=== PATIENT | male | born 1975 | race African-American/Black ===

== ENCOUNTER 2021-11-22 23:18 | Inpatient (IN) ==
[2021-11-23] MEDS ORDERED: ONDANSETRON 4 MG/2 ML VIAL IV STA (00:08)
[2021-11-23 00:38] LABS: Alanine Aminotransferase 11 U/L (16-61); Albumin 2.5 G/DL (3.4-5.0); Alkaline Phosphatase 81 U/L (45-117); Amylase 181 U/L (25-115); Aspartate Amino Transferase 10 U/L (0-37); Blood Urea Nitrogen 58 MG/DL (7-18); Calcium 8.5 MG/DL (8.5-10.1); Carbon Dioxide 28 MMOL/L (21-32); Chloride 96 MMOL/L (98-107); Estimated Glom Filtration Rate 6 ML/MIN; Glucose 246 MG/DL (74-106); Osmolality,Calculated 296.8 MOS/KG (273-304); Potassium 3.4 MMOL/L (3.5-5.1); Sodium 137 MMOL/L (136-145); Total Protein 6.6 G/DL (6.4-8.2)
[2021-11-23 00:59] LABS: Basophils # 0.1 10*3/uL (0.0-0.2); Basophils % 0.6 % (0.0-0.8); Eosinophils # 0.6 10*3/uL (0.0-0.87); Eosinophils % 5.4 % (0.00-10.9); Hematocrit 30.9 VOL% (42.0-52.0); Hemoglobin 9.6 GM/DL (14.0-18.0); Immature Granulocytes % 1.2 %; Immature Granulocytes Absolute 0.12 #; Lymphocytes # 0.9 10*3/uL (1.4-4.0); Lymphocytes % 8.5 % (21.2-54.2); Mean Corpuscular HGB Conc 31.1 GM/DL (32-36); Mean Corpuscular Volume 92.2 FL (87-102); Mean Platelet Volume 9.6 FL (9.6-12.0); Monocytes # 0.9 10*3/uL (0.11-0.8); Monocytes % 8.6 % (1.7-12.7); NRBC # 0.02 10*3/uL; Neutrophils % 75.7 % (38.7-73.9); Platelet Count 214 T/CUMM (130-400); Red Blood Count 3.35 MC/CUMM (3.8-5.5); Red Cell Distribution Width 14.9 % (9.3-17.3); White Blood Count 10.3 T/CUMM (4-12)
[2021-11-23 01:39] LABS: PT Patient Result 11.6 SECS (10.5-12.0)
[2021-11-23] MEDS ORDERED: metroNIDAZOLE 500 MG TABLET PO STA (02:08)
[2021-11-23] MEDS ORDERED: ACETAMINOPHEN 325 MG TABLET PO PRN (02:19)
[2021-11-23] MEDS ORDERED: GLUCAGON 1 MG VIAL IM PRN (02:19)
[2021-11-23] MEDS ORDERED: DEXTROSE 10% 250 ML BAG IV PRN (02:19)
[2021-11-23] MEDS: VANCOMYCIN 125 MG CAPSULE PO SCH ×4 (04:58→23:08)
[2021-11-23] MEDS: INSULIN REGULAR 100 UNIT/ML SUBCUT SCH ×4 (08:51→21:35)
[2021-11-23] MEDS ORDERED: HEPARIN 10,000 UNIT/10 ML VIAL IV ONE (16:15)
[2021-11-24 01:28] LABS: RBC,Urine 26546 /HPF (0-4)
[2021-11-24 01:30] LABS: Urine Color Red (Yellow)
[2021-11-24 01:31] LABS: Bilirubin,Urine Large mg/dL (Negative); Glucose,Urine (UA) 100 mg/dL (Negative); Ketones,Urine TR mg/dL (Negative); Nitrite,Urine Positive (Negative); Protein,Urine >=300 mg/dL (Negative); Urine Appearance CLOUDY (Clear); Urine pH 8.5 (4.5-8.0)
[2021-11-24 01:32] LABS: Blood, Urine Large mg/dL (Negative)
[2021-11-24 04:39] LABS: Basophils % 0.5 % (0.0-0.8); Eosinophils # 0.6 10*3/uL (0.0-0.87); Eosinophils % 6.7 % (0.00-10.9); Hematocrit 26.8 VOL% (42.0-52.0); Hemoglobin 8.3 GM/DL (14.0-18.0); Immature Granulocytes % 1.4 %; Immature Granulocytes Absolute 0.12 #; Lymphocytes # 0.8 10*3/uL (1.4-4.0); Lymphocytes % 9.2 % (21.2-54.2); Mean Corpuscular Volume 92.7 FL (87-102); Mean Platelet Volume 9.9 FL (9.6-12.0); Monocytes # 1.2 10*3/uL (0.11-0.8); Monocytes % 13.9 % (1.7-12.7); NRBC # 0.02 10*3/uL; Neutrophils % 68.3 % (38.7-73.9); Platelet Count 147 T/CUMM (130-400); Red Blood Count 2.89 MC/CUMM (3.8-5.5); Red Cell Distribution Width 15.2 % (9.3-17.3); White Blood Count 8.5 T/CUMM (4-12)
[2021-11-24 05:06] LABS: Alanine Aminotransferase < 9 U/L (16-61); Albumin 2.1 G/DL (3.4-5.0); Alkaline Phosphatase 65 U/L (45-117); Aspartate Amino Transferase 10 U/L (0-37); Blood Urea Nitrogen 31 MG/DL (7-18); Calcium 8.3 MG/DL (8.5-10.1); Carbon Dioxide 28 MMOL/L (21-32); Chloride 102 MMOL/L (98-107); Estimated Glom Filtration Rate 9 ML/MIN; Glucose 253 MG/DL (74-106); Osmolality,Calculated 288.8 MOS/KG (273-304); Phosphorous 4.2 MG/DL (2.5-4.9); Potassium 3.8 MMOL/L (3.5-5.1); Sodium 137 MMOL/L (136-145)
[2021-11-24] MEDS: VANCOMYCIN 125 MG CAPSULE PO SCH ×4 (05:23→22:45)
[2021-11-24] MEDS: INSULIN REGULAR 100 UNIT/ML SUBCUT SCH ×4 (08:55→20:41)
[2021-11-24] MEDS ORDERED: HEPARIN 10,000 UNIT/10 ML VIAL IV PRN (09:54)
[2021-11-24] MEDS: hydrALAZINE 20 MG/1 ML VIAL IV PRN (10:15)
[2021-11-24] MEDS: ONDANSETRON 4 MG/2 ML VIAL IV PRN (23:38)
[2021-11-25] MEDS: hydrALAZINE 20 MG/1 ML VIAL IV PRN (01:06)
[2021-11-25 04:52] LABS: Basophils % 0.4 % (0.0-0.8); Eosinophils # 0.3 10*3/uL (0.0-0.87); Eosinophils % 3.6 % (0.00-10.9); Hematocrit 29.7 VOL% (42.0-52.0); Hemoglobin 8.9 GM/DL (14.0-18.0); Immature Granulocytes % 0.7 %; Immature Granulocytes Absolute 0.07 #; Lymphocytes # 0.7 10*3/uL (1.4-4.0); Lymphocytes % 7.3 % (21.2-54.2); Mean Corpuscular Volume 93.7 FL (87-102); Mean Platelet Volume 10.3 FL (9.6-12.0); Monocytes # 1.1 10*3/uL (0.11-0.8); Monocytes % 11.5 % (1.7-12.7); NRBC # 0.02 10*3/uL; Neutrophils % 76.5 % (38.7-73.9); Platelet Count 184 T/CUMM (130-400); Red Blood Count 3.17 MC/CUMM (3.8-5.5); Red Cell Distribution Width 15.5 % (9.3-17.3); White Blood Count 9.5 T/CUMM (4-12)
[2021-11-25] MEDS: VANCOMYCIN 125 MG CAPSULE PO SCH ×4 (05:05→23:10)
[2021-11-25 05:15] LABS: Calcium 8.6 MG/DL (8.5-10.1); Osmolality,Calculated 284.7 MOS/KG (273-304); Potassium 3.6 MMOL/L (3.5-5.1)
[2021-11-25] MEDS ORDERED: predniSONE 20 MG TABLET PO SCH (09:00)
[2021-11-25] MEDS ORDERED: INSULIN GLARGINE 100 UNIT/ML SUBCUT SCH ×2 (09:00→21:00)
[2021-11-25] MEDS: ATORVASTATIN 20 MG TABLET PO SCH (09:54)
[2021-11-25] MEDS: TACROLIMUS 0.5 MG CAPSULE PO SCH ×2 (09:54→21:51)
[2021-11-25] MEDS: INSULIN REGULAR 100 UNIT/ML SUBCUT SCH ×4 (09:54→21:52)
[2021-11-25] MEDS: CHOLESTYRAMINE 4 GM PACK PO SCH ×2 (10:01→21:51)
[2021-11-25] MEDS: METOCLOPRAMIDE 10 MG/2 ML VIAL IV PRN (10:01)
[2021-11-25] MEDS: cefTRIAXone 2,000 MG in SODIUM CHLORIDE 0.9% 100 ML IV SCH (13:01)
[2021-11-25 13:45] LABS: Hemoglobin 9.4 GM/DL (14.0-18.0)
[2021-11-25] MEDS ORDERED: FLUCONAZOLE 100 MG TABLET PO SCH (14:30)
[2021-11-25] MEDS: NYSTATIN 500,000 UNIT/5 ML UDCUP PO SCH ×3 (16:18→21:51)
[2021-11-25] MEDS: methylPREDNISolone SOD SUC 125 MG/2 ML VIAL IV SCH (17:50)
[2021-11-25] MEDS: FERROUS SULFATE 325 MG TABLET PO SCH (21:50)
[2021-11-25 22:20] LABS: Hematocrit 33.2 VOL% (42.0-52.0); Hemoglobin 10.5 GM/DL (14.0-18.0)
[2021-11-26] MEDS: ONDANSETRON 4 MG/2 ML VIAL IV PRN (00:27)
[2021-11-26] MEDS: methylPREDNISolone SOD SUC 125 MG/2 ML VIAL IV SCH ×3 (00:30→16:21)
[2021-11-26] MEDS: METOCLOPRAMIDE 10 MG/2 ML VIAL IV PRN ×3 (01:43→21:25)
[2021-11-26] MEDS: INSULIN REGULAR 100 UNIT/ML SUBCUT SCH ×5 (01:53→21:25)
[2021-11-26] MEDS: VANCOMYCIN 125 MG CAPSULE PO SCH ×3 (04:19→16:21)
[2021-11-26] MEDS ORDERED: PROMETHAZINE INJ 12.5 MG in SODIUM CHLORIDE 0.9% 50 ML IV ONE (04:37)
[2021-11-26] MEDS: hydrALAZINE 20 MG/1 ML VIAL IV PRN (04:44)
[2021-11-26 05:59] LABS: Basophils % 0.1 % (0.0-0.8); Hematocrit 29.7 VOL% (42.0-52.0); Hemoglobin 9.4 GM/DL (14.0-18.0); Immature Granulocytes % 0.6 %; Immature Granulocytes Absolute 0.09 #; Lymphocytes # 0.3 10*3/uL (1.4-4.0); Lymphocytes % 2.3 % (21.2-54.2); Mean Corpuscular HGB Conc 31.6 GM/DL (32-36); Mean Corpuscular Volume 91.7 FL (87-102); Mean Platelet Volume 10.4 FL (9.6-12.0); Monocytes # 0.1 10*3/uL (0.11-0.8); Platelet Count 224 T/CUMM (130-400); Red Blood Count 3.24 MC/CUMM (3.8-5.5); Red Cell Distribution Width 15.4 % (9.3-17.3)
[2021-11-26 06:18] LABS: Calcium 9.7 MG/DL (8.5-10.1); Potassium 3.6 MMOL/L (3.5-5.1)
[2021-11-26 06:21] LABS: Hypochromia Slight; Lymphocytes 2 % (20-55); Microcytosis Slight; Platelet Estimate Adequate; Total Cells Counted 100
[2021-11-26] MEDS: ATORVASTATIN 20 MG TABLET PO SCH (09:23)
[2021-11-26] MEDS: NYSTATIN 500,000 UNIT/5 ML UDCUP PO SCH (09:23)
[2021-11-26] MEDS: NICOTINE 21 MG/24 HR PATCH TRANSDERM SCH (09:24)
[2021-11-26] MEDS: CHOLESTYRAMINE 4 GM PACK PO SCH ×2 (09:24→21:26)
[2021-11-26] MEDS: TACROLIMUS 0.5 MG CAPSULE PO SCH ×2 (09:28→21:24)
[2021-11-26] MEDS: FERROUS SULFATE 325 MG TABLET PO SCH ×2 (09:28→21:24)
[2021-11-26] MEDS: cefTRIAXone 2,000 MG in SODIUM CHLORIDE 0.9% 100 ML IV SCH (10:29)
[2021-11-26] MEDS ORDERED: ALUM/MAG/SIMETH/LIDO VISC 1:1 30 ML BOTTLE PO ONE (11:30)
[2021-11-26 14:07] LABS: Hematocrit 28.7 VOL% (42.0-52.0)
[2021-11-26] MEDS ORDERED: INSULIN GLARGINE 100 UNIT/ML SUBCUT SCH (21:00)
[2021-11-26] MEDS: PANTOPRAZOLE 40 MG TABLET PO SCH (21:24)
[2021-11-27] MEDS: VANCOMYCIN 125 MG CAPSULE PO SCH ×5 (00:25→22:28)
[2021-11-27] MEDS: methylPREDNISolone SOD SUC 125 MG/2 ML VIAL IV SCH ×3 (00:49→17:08)
[2021-11-27] MEDS: MORPHINE 2 MG/1 ML SYRINGE IV PRN ×3 (00:51→22:29)
[2021-11-27] MEDS: ONDANSETRON 4 MG/2 ML VIAL IV PRN ×2 (00:55→12:35)
[2021-11-27 05:37] LABS: Basophils % 0.1 % (0.0-0.8); Hematocrit 28.5 VOL% (42.0-52.0); Hemoglobin 8.7 GM/DL (14.0-18.0); Immature Granulocytes % 0.9 %; Immature Granulocytes Absolute 0.14 #; Lymphocytes # 0.3 10*3/uL (1.4-4.0); Mean Corpuscular HGB Conc 30.5 GM/DL (32-36); Mean Corpuscular Volume 94.1 FL (87-102); Mean Platelet Volume 9.9 FL (9.6-12.0); Monocytes # 0.3 10*3/uL (0.11-0.8); Monocytes % 1.7 % (1.7-12.7); Neutrophils % 95.3 % (38.7-73.9); Platelet Count 240 T/CUMM (130-400); Red Blood Count 3.03 MC/CUMM (3.8-5.5); Red Cell Distribution Width 15.9 % (9.3-17.3); White Blood Count 16.3 T/CUMM (4-12)
[2021-11-27] MEDS: METOCLOPRAMIDE 10 MG/2 ML VIAL IV PRN (05:41)
[2021-11-27 05:57] LABS: Calcium 10.2 MG/DL (8.5-10.1); Potassium 4.2 MMOL/L (3.5-5.1)
[2021-11-27 06:19] LABS: Band Neutrophils 1 % (0-10); Hypochromia Slight; Platelet Estimate Normal
[2021-11-27 06:20] LABS: Total Cells Counted 100
[2021-11-27] MEDS: FERROUS SULFATE 325 MG TABLET PO SCH ×2 (08:37→22:27)
[2021-11-27] MEDS: ATORVASTATIN 20 MG TABLET PO SCH (08:37)
[2021-11-27] MEDS: PANTOPRAZOLE 40 MG TABLET PO SCH ×2 (08:37→22:27)
[2021-11-27] MEDS: CHOLESTYRAMINE 4 GM PACK PO SCH ×2 (08:38→22:27)
[2021-11-27] MEDS: NICOTINE 21 MG/24 HR PATCH TRANSDERM SCH (08:46)
[2021-11-27] MEDS: TACROLIMUS 0.5 MG CAPSULE PO SCH ×2 (08:53→22:39)
[2021-11-27] MEDS: INSULIN REGULAR 100 UNIT/ML SUBCUT SCH ×4 (08:54→22:28)
[2021-11-27] MEDS: cefTRIAXone 2,000 MG in SODIUM CHLORIDE 0.9% 100 ML IV SCH (12:34)
[2021-11-27] MEDS: NYSTATIN 500,000 UNIT/5 ML UDCUP SWISH/SWAL SCH ×3 (14:33→22:27)
[2021-11-27] MEDS ORDERED: INSULIN GLARGINE 100 UNIT/ML SUBCUT SCH (21:00)
[2021-11-28] MEDS: methylPREDNISolone SOD SUC 125 MG/2 ML VIAL IV SCH ×2 (00:18→09:00)
[2021-11-28 05:01] LABS: Basophils % 0.1 % (0.0-0.8); Hematocrit 28.6 VOL% (42.0-52.0); Hemoglobin 8.9 GM/DL (14.0-18.0); Immature Granulocytes % 1.4 %; Immature Granulocytes Absolute 0.22 #; Lymphocytes # 0.4 10*3/uL (1.4-4.0); Lymphocytes % 2.5 % (21.2-54.2); Mean Corpuscular HGB Conc 31.1 GM/DL (32-36); Mean Corpuscular Volume 92.6 FL (87-102); Mean Platelet Volume 10.2 FL (9.6-12.0); Monocytes # 0.6 10*3/uL (0.11-0.8); Monocytes % 4.1 % (1.7-12.7); NRBC # 0.03 10*3/uL; Neutrophils % 91.9 % (38.7-73.9); Platelet Count 213 T/CUMM (130-400); Red Blood Count 3.09 MC/CUMM (3.8-5.5); Red Cell Distribution Width 15.4 % (9.3-17.3); White Blood Count 15.7 T/CUMM (4-12)
[2021-11-28] MEDS: VANCOMYCIN 125 MG CAPSULE PO SCH ×4 (05:11→22:40)
[2021-11-28 05:21] LABS: Osmolality,Calculated 286.2 MOS/KG (273-304); Potassium 4.3 MMOL/L (3.5-5.1)
[2021-11-28] MEDS: METOCLOPRAMIDE 10 MG/2 ML VIAL IV PRN (05:24)
[2021-11-28 05:29] LABS: Band Neutrophils 1 % (0-10); Hypochromia 1+; Lymphocytes 5 % (20-55); Total Cells Counted 100
[2021-11-28 05:30] LABS: Microcytosis 1+; Ovalocytes Slight; Polychromasia Slight
[2021-11-28 05:31] LABS: Platelet Estimate Normal
[2021-11-28] MEDS: ATORVASTATIN 20 MG TABLET PO SCH (08:52)
[2021-11-28] MEDS: TACROLIMUS 0.5 MG CAPSULE PO SCH ×2 (08:53→20:18)
[2021-11-28] MEDS: PANTOPRAZOLE 40 MG TABLET PO SCH ×2 (08:53→20:19)
[2021-11-28] MEDS: NYSTATIN 500,000 UNIT/5 ML UDCUP SWISH/SWAL SCH ×4 (08:53→20:17)
[2021-11-28] MEDS: CHOLESTYRAMINE 4 GM PACK PO SCH ×2 (08:54→20:33)
[2021-11-28] MEDS: NICOTINE 21 MG/24 HR PATCH TRANSDERM SCH (08:54)
[2021-11-28] MEDS: MORPHINE 2 MG/1 ML SYRINGE IV PRN ×2 (08:55→20:37)
[2021-11-28] MEDS: INSULIN REGULAR 100 UNIT/ML SUBCUT SCH ×4 (08:55→20:23)
[2021-11-28] MEDS: FERROUS SULFATE 325 MG TABLET PO SCH ×2 (09:03→20:18)
[2021-11-28] MEDS: LOPERAMIDE 2 MG CAPSULE PO PRN (11:18)
[2021-11-28] MEDS: cefTRIAXone 2,000 MG in SODIUM CHLORIDE 0.9% 100 ML IV SCH (11:22)
[2021-11-28] MEDS ORDERED: ALUM/MAG/SIMETH/LIDO VISC 1:1 30 ML BOTTLE PO ONE (15:06)
[2021-11-28] MEDS: predniSONE 20 MG TABLET PO SCH (20:19)
[2021-11-28] MEDS: INSULIN GLARGINE 100 UNIT/ML SUBCUT SCH (20:25)
[2021-11-29] MEDS: LOPERAMIDE 2 MG CAPSULE PO PRN ×2 (00:32→09:02)
[2021-11-29 04:07] LABS: Basophils % 0.2 % (0.0-0.8); Hematocrit 27.5 VOL% (42.0-52.0); Hemoglobin 8.8 GM/DL (14.0-18.0); Immature Granulocytes % 1.9 %; Immature Granulocytes Absolute 0.23 #; Lymphocytes # 0.6 10*3/uL (1.4-4.0); Lymphocytes % 4.9 % (21.2-54.2); Mean Corpuscular Volume 90.8 FL (87-102); Mean Platelet Volume 10.5 FL (9.6-12.0); Monocytes # 0.8 10*3/uL (0.11-0.8); Monocytes % 6.5 % (1.7-12.7); NRBC # 0.05 10*3/uL; Neutrophils % 86.5 % (38.7-73.9); Platelet Count 223 T/CUMM (130-400); Red Blood Count 3.03 MC/CUMM (3.8-5.5); Red Cell Distribution Width 15.4 % (9.3-17.3); White Blood Count 11.9 T/CUMM (4-12)
[2021-11-29 04:29] LABS: Calcium 9.2 MG/DL (8.5-10.1); Osmolality,Calculated 296.1 MOS/KG (273-304); Potassium 4.1 MMOL/L (3.5-5.1)
[2021-11-29 04:31] LABS: Hypochromia 1+; Lymphocytes 2 % (20-55); Microcytosis 1+; Nucleated Red Blood Cells 1 (0-5); Platelet Estimate Adequate; Total Cells Counted 100
[2021-11-29] MEDS: VANCOMYCIN 125 MG CAPSULE PO SCH ×4 (04:33→22:55)
[2021-11-29] MEDS: MORPHINE 2 MG/1 ML SYRINGE IV PRN ×3 (04:41→22:58)
[2021-11-29] MEDS: INSULIN REGULAR 100 UNIT/ML SUBCUT SCH ×4 (08:01→21:39)
[2021-11-29] MEDS: PANTOPRAZOLE 40 MG TABLET PO SCH ×2 (08:58→20:55)
[2021-11-29] MEDS: ATORVASTATIN 20 MG TABLET PO SCH (08:58)
[2021-11-29] MEDS: CHOLESTYRAMINE 4 GM PACK PO SCH ×2 (08:58→20:55)
[2021-11-29] MEDS: TACROLIMUS 0.5 MG CAPSULE PO SCH ×2 (08:59→20:55)
[2021-11-29] MEDS: predniSONE 20 MG TABLET PO SCH ×2 (08:59→21:00)
[2021-11-29] MEDS: NYSTATIN 500,000 UNIT/5 ML UDCUP SWISH/SWAL SCH ×4 (08:59→20:54)
[2021-11-29] MEDS: FERROUS SULFATE 325 MG TABLET PO SCH ×2 (08:59→21:00)
[2021-11-29] MEDS: NICOTINE 21 MG/24 HR PATCH TRANSDERM SCH (09:13)
[2021-11-29] MEDS ORDERED: ALUMINUM/MAGNES/SIMETH MAX STR 30 ML UDCUP PO PRN (10:17)
[2021-11-29] MEDS: cefTRIAXone 2,000 MG in SODIUM CHLORIDE 0.9% 100 ML IV SCH (14:42)
[2021-11-29] MEDS: INSULIN GLARGINE 100 UNIT/ML SUBCUT SCH (20:56)
[2021-11-30] MEDS: VANCOMYCIN 125 MG CAPSULE PO SCH ×4 (04:35→22:47)
[2021-11-30 05:26] LABS: Basophils % 0.3 % (0.0-0.8); Eosinophils % 0.1 % (0.00-10.9); Hematocrit 29.4 VOL% (42.0-52.0); Immature Granulocytes % 4.2 %; Immature Granulocytes Absolute 0.55 #; Lymphocytes # 0.8 10*3/uL (1.4-4.0); Mean Corpuscular HGB Conc 30.6 GM/DL (32-36); Mean Corpuscular Volume 93.6 FL (87-102); Mean Platelet Volume 10.1 FL (9.6-12.0); Monocytes # 0.6 10*3/uL (0.11-0.8); Monocytes % 4.8 % (1.7-12.7); NRBC # 0.06 10*3/uL; Neutrophils % 84.6 % (38.7-73.9); Platelet Count 232 T/CUMM (130-400); Red Blood Count 3.14 MC/CUMM (3.8-5.5); Red Cell Distribution Width 15.8 % (9.3-17.3); White Blood Count 13.1 T/CUMM (4-12)
[2021-11-30 05:46] LABS: Calcium 8.8 MG/DL (8.5-10.1); Osmolality,Calculated 283.8 MOS/KG (273-304); Potassium 4.1 MMOL/L (3.5-5.1)
[2021-11-30 06:03] LABS: Hypochromia 1+; Lymphocytes 5 % (20-55); Microcytosis 1+; Platelet Estimate Adequate; Total Cells Counted 100
[2021-11-30] MEDS: INSULIN REGULAR 100 UNIT/ML SUBCUT SCH ×4 (08:31→21:13)
[2021-11-30] MEDS: SODIUM CHLORIDE 0.9% 1,000 ML IV SCH (10:49)
[2021-11-30] MEDS ORDERED: LIDOCAINE 2% 5 ML VIAL ONE (13:25)
[2021-11-30] MEDS ORDERED: propofoL 200 MG/20 ML VIAL IV ONE (13:25)
[2021-11-30] MEDS: NYSTATIN 500,000 UNIT/5 ML UDCUP SWISH/SWAL SCH ×4 (15:14→21:11)
[2021-11-30] MEDS: predniSONE 20 MG TABLET PO SCH ×2 (15:15→21:12)
[2021-11-30] MEDS: FERROUS SULFATE 325 MG TABLET PO SCH ×2 (15:15→21:12)
[2021-11-30] MEDS: PANTOPRAZOLE 40 MG TABLET PO SCH ×2 (15:15→21:12)
[2021-11-30] MEDS: ATORVASTATIN 20 MG TABLET PO SCH (15:15)
[2021-11-30] MEDS: TACROLIMUS 0.5 MG CAPSULE PO SCH ×2 (15:15→21:12)
[2021-11-30] MEDS: CHOLESTYRAMINE 4 GM PACK PO SCH ×2 (15:16→21:11)
[2021-11-30] MEDS: cefTRIAXone 2,000 MG in SODIUM CHLORIDE 0.9% 100 ML IV SCH (15:19)
[2021-11-30] MEDS: NICOTINE 21 MG/24 HR PATCH TRANSDERM SCH (15:51)
[2021-11-30] MEDS: MORPHINE 2 MG/1 ML SYRINGE IV PRN (16:29)
[2021-11-30] MEDS: hydrALAZINE 20 MG/1 ML VIAL IV PRN (16:50)
[2021-11-30] MEDS: INSULIN GLARGINE 100 UNIT/ML SUBCUT SCH (21:45)
[2021-12-01] MEDS: VANCOMYCIN 125 MG CAPSULE PO SCH ×4 (04:30→22:58)
[2021-12-01 04:51] LABS: Basophils % 0.3 % (0.0-0.8); Eosinophils % 0.3 % (0.00-10.9); Hematocrit 29.2 VOL% (42.0-52.0); Hemoglobin 8.9 GM/DL (14.0-18.0); Immature Granulocytes % 2.4 %; Immature Granulocytes Absolute 0.28 #; Lymphocytes # 0.4 10*3/uL (1.4-4.0); Lymphocytes % 3.6 % (21.2-54.2); Mean Corpuscular HGB Conc 30.5 GM/DL (32-36); Mean Corpuscular Volume 94.2 FL (87-102); Mean Platelet Volume 10.7 FL (9.6-12.0); Monocytes # 0.6 10*3/uL (0.11-0.8); Monocytes % 5.2 % (1.7-12.7); NRBC # 0.02 10*3/uL; Neutrophils % 88.2 % (38.7-73.9); Platelet Count 177 T/CUMM (130-400); Red Cell Distribution Width 16.3 % (9.3-17.3); White Blood Count 11.8 T/CUMM (4-12)
[2021-12-01 05:08] LABS: Calcium 8.8 MG/DL (8.5-10.1); Osmolality,Calculated 297.5 MOS/KG (273-304); Potassium 4.7 MMOL/L (3.5-5.1)
[2021-12-01 05:21] LABS: Band Neutrophils 1 % (0-10); Hypochromia 1+; Lymphocytes 3 % (20-55); Microcytosis 1+; Platelet Estimate Adequate; Total Cells Counted 100
[2021-12-01] MEDS: CHOLESTYRAMINE 4 GM PACK PO SCH ×2 (08:36→21:51)
[2021-12-01] MEDS: NYSTATIN 500,000 UNIT/5 ML UDCUP SWISH/SWAL SCH ×4 (08:36→21:47)
[2021-12-01] MEDS: FERROUS SULFATE 325 MG TABLET PO SCH ×2 (08:37→21:47)
[2021-12-01] MEDS: TACROLIMUS 0.5 MG CAPSULE PO SCH ×2 (08:37→21:46)
[2021-12-01] MEDS: PANTOPRAZOLE 40 MG TABLET PO SCH ×2 (08:38→21:47)
[2021-12-01] MEDS: predniSONE 20 MG TABLET PO SCH ×2 (08:38→21:46)
[2021-12-01] MEDS: ATORVASTATIN 20 MG TABLET PO SCH (08:38)
[2021-12-01] MEDS: INSULIN REGULAR 100 UNIT/ML SUBCUT SCH ×5 (08:39→21:47)
[2021-12-01] MEDS: ONDANSETRON 4 MG/2 ML VIAL IV PRN (08:45)
[2021-12-01] MEDS: SODIUM CHLORIDE 0.9% 1,000 ML IV SCH (08:49)
[2021-12-01] MEDS: NICOTINE 21 MG/24 HR PATCH TRANSDERM SCH (08:49)
[2021-12-01] MEDS: cefTRIAXone 2,000 MG in SODIUM CHLORIDE 0.9% 100 ML IV SCH (12:34)
[2021-12-01] MEDS: metroNIDAZOLE INJ 500 MG/100 ML PREMIX IV SCH ×2 (13:39→21:48)
[2021-12-01] MEDS: LOPERAMIDE 2 MG CAPSULE PO PRN (13:48)
[2021-12-01] MEDS: MORPHINE 2 MG/1 ML SYRINGE IV PRN (13:51)
[2021-12-01] MEDS: INSULIN GLARGINE 100 UNIT/ML SUBCUT SCH (21:48)
[2021-12-02] MEDS: ONDANSETRON 4 MG/2 ML VIAL IV PRN (04:18)
[2021-12-02 05:01] LABS: Basophils % 0.2 % (0.0-0.8); Eosinophils % 0.2 % (0.00-10.9); Hemoglobin 8.1 GM/DL (14.0-18.0); Immature Granulocytes % 1.6 %; Lymphocytes # 0.4 10*3/uL (1.4-4.0); Lymphocytes % 3.4 % (21.2-54.2); Mean Corpuscular HGB Conc 31.2 GM/DL (32-36); Mean Corpuscular Volume 93.2 FL (87-102); Monocytes # 0.5 10*3/uL (0.11-0.8); Monocytes % 3.8 % (1.7-12.7); NRBC # 0.02 10*3/uL; Neutrophils % 90.8 % (38.7-73.9); Platelet Count 158 T/CUMM (130-400); Red Blood Count 2.79 MC/CUMM (3.8-5.5); Red Cell Distribution Width 16.4 % (9.3-17.3); White Blood Count 12.2 T/CUMM (4-12)
[2021-12-02 05:15] LABS: Calcium 9.1 MG/DL (8.5-10.1); Osmolality,Calculated 287.4 MOS/KG (273-304); Potassium 4.5 MMOL/L (3.5-5.1)
[2021-12-02 05:35] LABS: Band Neutrophils 4 % (0-10); Lymphocytes 4 % (20-55); Platelet Estimate Normal; Total Cells Counted 100
[2021-12-02 05:36] LABS: Anisocytosis 2+; Macrocytosis Slight; Ovalocytes Few
[2021-12-02] MEDS: metroNIDAZOLE INJ 500 MG/100 ML PREMIX IV SCH ×3 (05:59→21:41)
[2021-12-02] MEDS: VANCOMYCIN 125 MG CAPSULE PO SCH ×4 (05:59→22:34)
[2021-12-02] MEDS: FERROUS SULFATE 325 MG TABLET PO SCH ×2 (08:19→21:40)
[2021-12-02] MEDS: NYSTATIN 500,000 UNIT/5 ML UDCUP SWISH/SWAL SCH ×4 (08:19→21:40)
[2021-12-02] MEDS: CHOLESTYRAMINE 4 GM PACK PO SCH ×2 (08:19→21:41)
[2021-12-02] MEDS: TACROLIMUS 0.5 MG CAPSULE PO SCH ×2 (08:20→21:40)
[2021-12-02] MEDS: predniSONE 20 MG TABLET PO SCH ×2 (08:20→21:40)
[2021-12-02] MEDS: ATORVASTATIN 20 MG TABLET PO SCH (08:20)
[2021-12-02] MEDS: PANTOPRAZOLE 40 MG TABLET PO SCH ×2 (08:21→21:40)
[2021-12-02] MEDS: INSULIN REGULAR 100 UNIT/ML SUBCUT SCH ×4 (08:21→21:41)
[2021-12-02] MEDS: NICOTINE 21 MG/24 HR PATCH TRANSDERM SCH (08:21)
[2021-12-02] MEDS: cefTRIAXone 2,000 MG in SODIUM CHLORIDE 0.9% 100 ML IV SCH (10:11)
[2021-12-02] MEDS: MORPHINE 2 MG/1 ML SYRINGE IV PRN (10:21)
[2021-12-02] MEDS: INSULIN GLARGINE 100 UNIT/ML SUBCUT SCH (21:41)
[2021-12-03] MEDS: MORPHINE 2 MG/1 ML SYRINGE IV PRN ×2 (00:15→06:15)
[2021-12-03 05:36] LABS: Calcium 9.4 MG/DL (8.5-10.1); Osmolality,Calculated 283.7 MOS/KG (273-304); Potassium 4.5 MMOL/L (3.5-5.1)
[2021-12-03 05:41] LABS: Basophils % 0.1 % (0.0-0.8); Hematocrit 29.8 VOL% (42.0-52.0); Hemoglobin 9.5 GM/DL (14.0-18.0); Immature Granulocytes % 2.4 %; Immature Granulocytes Absolute 0.26 #; Lymphocytes # 0.4 10*3/uL (1.4-4.0); Mean Corpuscular HGB Conc 31.9 GM/DL (32-36); Mean Corpuscular Volume 92.3 FL (87-102); Mean Platelet Volume 10.1 FL (9.6-12.0); Monocytes # 0.4 10*3/uL (0.11-0.8); Monocytes % 3.5 % (1.7-12.7); Platelet Count 193 T/CUMM (130-400); Red Blood Count 3.23 MC/CUMM (3.8-5.5); Red Cell Distribution Width 16.6 % (9.3-17.3); White Blood Count 10.8 T/CUMM (4-12)
[2021-12-03] MEDS: ONDANSETRON 4 MG/2 ML VIAL IV PRN (06:10)
[2021-12-03 06:13] LABS: Lymphocytes 2 % (20-55); Platelet Estimate Adequate; Poikilocytosis 1+; Polychromasia 1+; Total Cells Counted 100
[2021-12-03] MEDS: metroNIDAZOLE INJ 500 MG/100 ML PREMIX IV SCH ×2 (06:15→14:18)
[2021-12-03] MEDS: METOCLOPRAMIDE 10 MG/2 ML VIAL IV PRN (06:16)
[2021-12-03] MEDS: CHOLESTYRAMINE 4 GM PACK PO SCH (08:53)
[2021-12-03] MEDS: FERROUS SULFATE 325 MG TABLET PO SCH (08:54)
[2021-12-03] MEDS: NYSTATIN 500,000 UNIT/5 ML UDCUP SWISH/SWAL SCH ×2 (08:54→13:00)
[2021-12-03] MEDS: TACROLIMUS 0.5 MG CAPSULE PO SCH (08:55)
[2021-12-03] MEDS: PANTOPRAZOLE 40 MG TABLET PO SCH (08:55)
[2021-12-03] MEDS: ATORVASTATIN 20 MG TABLET PO SCH (08:56)
[2021-12-03] MEDS: predniSONE 20 MG TABLET PO SCH (08:56)
[2021-12-03] MEDS: INSULIN REGULAR 100 UNIT/ML SUBCUT SCH ×2 (09:00→11:30)
[2021-12-03] MEDS: NICOTINE 21 MG/24 HR PATCH TRANSDERM SCH (09:00)
[2021-12-03 09:36] VITALS: BP 136/74
[2021-12-03] MEDS: hydrALAZINE 20 MG/1 ML VIAL IV PRN (12:45)
== END 2021-12-03 16:50 | disposition home or self-care (01) | DRG 371 ==
LOC: N.EDINP 23:18 → N.ED 23:18 → SUATTDRO 11-23 02:19 → N.EDINP 11-23 14:06 → N.TELES 11-23 14:28 → SUATTDRO 11-25 12:37
PROVIDERS: ADMIT Internal Medicine Geriatric Medicine; ATTEND Internal Medicine

== ENCOUNTER 2022-01-07 13:09 | Inpatient (IN) ==
[2022-01-07] MEDS ORDERED: SODIUM CHLORIDE 0.9% 1,000 ML IV STA (14:30)
[2022-01-07] MEDS ORDERED: INSULIN REGULAR 100 UNIT/ML IV STA (14:31)
[2022-01-07 15:23] LABS: Arterial Base Excess iSTAT -7 MMOL/L (-2.5-2.5); Arterial Bicarbonate iSTAT 18.5 MMOL/L (20-26); Arterial O2 Saturation iSTAT 98 % (95-100); Arterial PCO2 iSTAT 35 MM HG (35-48); Arterial PO2 iSTAT 105 MM HG (80-95); Arterial Total CO2 iSTAT 20 MMO/L (23-27); Arterial pH iSTAT 7.336 (7.35-7.45)
[2022-01-07 16:40] LABS: Basophils % 0.1 % (0.0-0.8); Hematocrit 34.4 VOL% (42.0-52.0); Hemoglobin 10.2 GM/DL (14.0-18.0); Immature Granulocytes % 0.6 %; Immature Granulocytes Absolute 0.06 #; Lymphocytes # 0.4 10*3/uL (1.4-4.0); Mean Corpuscular HGB Conc 29.7 GM/DL (32-36); Mean Corpuscular Volume 89.1 FL (87-102); Mean Platelet Volume 9.9 FL (9.6-12.0); Monocytes # 0.5 10*3/uL (0.11-0.8); Monocytes % 4.4 % (1.7-12.7); Neutrophils % 90.9 % (38.7-73.9); Platelet Count 195 T/CUMM (130-400); Red Blood Count 3.86 MC/CUMM (3.8-5.5); Red Cell Distribution Width 17.1 % (9.3-17.3); White Blood Count 10.9 T/CUMM (4-12)
[2022-01-07 16:57] LABS: Alanine Aminotransferase < 9 U/L (16-61); Albumin 2.4 G/DL (3.4-5.0); Alkaline Phosphatase 135 U/L (45-117); Amylase 242 U/L (25-115); Aspartate Amino Transferase 8 U/L (0-37); Blood Urea Nitrogen 58 MG/DL (7-18); Calcium 9.2 MG/DL (8.5-10.1); Carbon Dioxide 18 MMOL/L (21-32); Chloride 88 MMOL/L (98-107); Osmolality,Calculated 318.5 MOS/KG (273-304); Potassium 4.5 MMOL/L (3.5-5.1); Sodium 132 MMOL/L (136-145)
[2022-01-07 17:00] LABS: Glucose 805 MG/DL (74-106)
[2022-01-07 17:08] LABS: Band Neutrophils 1 % (0-10); Lymphocytes 1 % (20-55); Platelet Estimate Adequate; Total Cells Counted 100
[2022-01-07] MEDS ORDERED: SODIUM CHLORIDE 0.9% 1,000 ML IV SCH ×3 (17:30→23:45)
[2022-01-07] MEDS ORDERED: SODIUM BICARB INJ 100 MEQ in STERILE WATER INJ 400 ML IV PRN (18:36)
[2022-01-07] MEDS ORDERED: SODIUM PHOSPHATE IV PRN (18:36)
[2022-01-07] MEDS ORDERED: MAGNESIUM SULF RIDER 4 GM/100 ML PREMIX IV PRN (18:36)
[2022-01-07] MEDS ORDERED: POTASSIUM CHLORIDE RIDER 10 MEQ/100 ML PREMIX IV PRN (18:36)
[2022-01-07] MEDS ORDERED: SODIUM CHLORIDE 0.9% IV PRN (18:36)
[2022-01-07] MEDS ORDERED: DEXTROSE 50% 25 GM/50 ML VIAL IV PRN (18:36)
[2022-01-07] MEDS ORDERED: MAGNESIUM SULF RIDER 2 GM/50 ML PREMIX IV PRN (18:36)
[2022-01-07] MEDS ORDERED: DEXTROSE 10% 250 ML BAG IV PRN ×2 (19:05→19:36)
[2022-01-07] MEDS ORDERED: GLUCAGON 1 MG VIAL IM PRN (19:30)
[2022-01-07] MEDS ORDERED: INSULIN REGULAR 100 UNIT/ML IV ONE (19:30)
[2022-01-07] MEDS ORDERED: INSULIN REGULAR DRIP 100 ML IV SCH (19:30)
[2022-01-07] MEDS ORDERED: SODIUM CHLORIDE 0.9% 1,000 ML IV ONE (19:30)
[2022-01-07] MEDS ORDERED: SODIUM BICARBONATE 50 MEQ/50 ML VIAL IV STA (19:35)
[2022-01-07 19:56] LABS: Calcium 8.7 MG/DL (8.5-10.1); Osmolality,Calculated 315.2 MOS/KG (273-304); Potassium 4.2 MMOL/L (3.5-5.1)
[2022-01-07] MEDS: INSULIN REGULAR 100 UNIT/ML SUBCUT SCH (20:19)
[2022-01-07] MEDS: HEPARIN 5,000 UNIT/1 ML VIAL SUBCUT SCH (21:10)
[2022-01-07] MEDS: FERROUS SULFATE 325 MG TABLET PO SCH (21:10)
[2022-01-08] MEDS: INSULIN REGULAR 100 UNIT/ML SUBCUT SCH ×6 (00:38→22:26)
[2022-01-08 03:50] LABS: Basophils % 0.1 % (0.0-0.8); Eosinophils % 0.4 % (0.00-10.9); Hematocrit 27.4 VOL% (42.0-52.0); Hemoglobin 8.7 GM/DL (14.0-18.0); Immature Granulocytes % 0.4 %; Immature Granulocytes Absolute 0.04 #; Lymphocytes # 0.6 10*3/uL (1.4-4.0); Lymphocytes % 5.8 % (21.2-54.2); Mean Corpuscular HGB Conc 31.8 GM/DL (32-36); Mean Corpuscular Volume 83.3 FL (87-102); Mean Platelet Volume 8.8 FL (9.6-12.0); Monocytes # 0.5 10*3/uL (0.11-0.8); Monocytes % 4.7 % (1.7-12.7); Neutrophils % 88.6 % (38.7-73.9); Platelet Count 140 T/CUMM (130-400); Red Blood Count 3.29 MC/CUMM (3.8-5.5); Red Cell Distribution Width 16.5 % (9.3-17.3); White Blood Count 10.3 T/CUMM (4-12)
[2022-01-08 04:06] LABS: Calcium 8.7 MG/DL (8.5-10.1); Osmolality,Calculated 303.8 MOS/KG (273-304); Potassium 3.5 MMOL/L (3.5-5.1)
[2022-01-08] MEDS: PANTOPRAZOLE 40 MG TABLET PO SCH (06:32)
[2022-01-08] MEDS: FERROUS SULFATE 325 MG TABLET PO SCH ×2 (09:06→22:08)
[2022-01-08] MEDS: ASPIRIN EC 81 MG TABLET PO SCH (09:06)
[2022-01-08] MEDS: ATORVASTATIN 20 MG TABLET PO SCH (09:06)
[2022-01-08] MEDS: HEPARIN 5,000 UNIT/1 ML VIAL SUBCUT SCH ×2 (09:06→22:08)
[2022-01-08] MEDS: INSULIN ASPART PROTAMINE/ASPART 70/30 100 UNIT/ML SUBCUT SCH ×2 (09:32→16:36)
[2022-01-08] MEDS ORDERED: SODIUM CHLORIDE 0.45% 1,000 ML IV SCH (12:00)
[2022-01-08] MEDS: hydrALAZINE 25 MG TABLET PO SCH ×2 (15:53→22:08)
[2022-01-08] MEDS ORDERED: HEPARIN 10,000 UNIT/10 ML VIAL IV SCH (18:45)
[2022-01-09] MEDS: INSULIN REGULAR 100 UNIT/ML SUBCUT SCH ×6 (01:26→20:00)
[2022-01-09] MEDS: ONDANSETRON 4 MG/2 ML VIAL IV PRN ×2 (01:26→05:46)
[2022-01-09] MEDS: PANTOPRAZOLE 40 MG TABLET PO SCH (06:13)
[2022-01-09] MEDS: INSULIN ASPART PROTAMINE/ASPART 70/30 100 UNIT/ML SUBCUT SCH ×2 (09:32→16:57)
[2022-01-09] MEDS: FERROUS SULFATE 325 MG TABLET PO SCH ×2 (09:38→22:03)
[2022-01-09] MEDS: ATORVASTATIN 20 MG TABLET PO SCH (09:38)
[2022-01-09] MEDS: hydrALAZINE 25 MG TABLET PO SCH ×3 (09:38→22:03)
[2022-01-09] MEDS: ASPIRIN EC 81 MG TABLET PO SCH (09:38)
[2022-01-09] MEDS: HEPARIN 5,000 UNIT/1 ML VIAL SUBCUT SCH ×2 (09:38→22:04)
[2022-01-09] MEDS: amLODIPine 5 MG TABLET PO SCH (10:31)
[2022-01-09] MEDS ORDERED: SODIUM CHLORIDE 0.9% 500 ML IV ONE (11:00)
[2022-01-09] MEDS ORDERED: LIDOCAINE 2% VISCOUS 100 ML BOTTLE SWISH/SWAL ONE (11:02)
[2022-01-09] MEDS ORDERED: LIDOCAINE 2% VISCOUS 100 ML BOTTLE SWISH/SWAL PRN (11:02)
[2022-01-09] MEDS: METOCLOPRAMIDE 10 MG/2 ML VIAL IV SCH ×2 (13:32→18:30)
[2022-01-09] MEDS: chlorproMAZINE 25 MG TABLET PO SCH ×2 (16:57→22:04)
[2022-01-10] MEDS: INSULIN REGULAR 100 UNIT/ML SUBCUT SCH ×5 (00:14→17:25)
[2022-01-10] MEDS: METOCLOPRAMIDE 10 MG/2 ML VIAL IV SCH ×4 (00:34→17:57)
[2022-01-10] MEDS: PANTOPRAZOLE 40 MG TABLET PO SCH (05:58)
[2022-01-10] MEDS: INSULIN ASPART PROTAMINE/ASPART 70/30 100 UNIT/ML SUBCUT SCH ×2 (09:27→17:25)
[2022-01-10] MEDS: HEPARIN 5,000 UNIT/1 ML VIAL SUBCUT SCH (09:28)
[2022-01-10] MEDS ORDERED: MYLANTA/LIDO VISC 2:1 300 ML BOTTLE SWISH/SWAL PRN (10:35)
[2022-01-10] MEDS: chlorproMAZINE 25 MG TABLET PO SCH (10:35)
[2022-01-10 12:29] VITALS: BP 130/86
[2022-01-10] MEDS: hydrALAZINE 25 MG TABLET PO SCH ×2 (17:25→17:27)
[2022-01-10] MEDS: ASPIRIN EC 81 MG TABLET PO SCH (17:26)
[2022-01-10] MEDS: ATORVASTATIN 20 MG TABLET PO SCH (17:26)
[2022-01-10] MEDS: amLODIPine 5 MG TABLET PO SCH (17:27)
[2022-01-10] MEDS: FERROUS SULFATE 325 MG TABLET PO SCH (17:27)
[2022-01-10] MEDS ORDERED: PANTOPRAZOLE 40 MG TABLET PO SCH (21:00)
== END 2022-01-10 18:03 | disposition home or self-care (01) | DRG 637 ==
LOC: N.ED 13:09 → SUATTDRO 18:36 → N.EDINP 18:36 → N.TELEN 01-08 21:23
PROVIDERS: ADMIT Family Medicine; ATTEND Internal Medicine

== ENCOUNTER 2022-01-23 19:52 | Inpatient (IN) ==
[2022-01-23 20:51] LABS: Basophils % 0.1 % (0.0-0.8); Eosinophils % 0.1 % (0.00-10.9); Hematocrit 32.2 VOL% (42.0-52.0); Hemoglobin 9.7 GM/DL (14.0-18.0); Immature Granulocytes % 0.6 %; Immature Granulocytes Absolute 0.06 #; Lymphocytes # 0.8 10*3/uL (1.4-4.0); Lymphocytes % 7.5 % (21.2-54.2); Mean Corpuscular HGB Conc 30.1 GM/DL (32-36); Mean Corpuscular Volume 85.2 FL (87-102); Mean Platelet Volume 9.8 FL (9.6-12.0); Monocytes # 0.3 10*3/uL (0.11-0.8); Monocytes % 2.8 % (1.7-12.7); Neutrophils % 88.9 % (38.7-73.9); Platelet Count 215 T/CUMM (130-400); Red Blood Count 3.78 MC/CUMM (3.8-5.5); Red Cell Distribution Width 17.6 % (9.3-17.3); White Blood Count 10.1 T/CUMM (4-12)
[2022-01-23 21:02] LABS: PT Patient Result 10.9 SECS (10.5-12.0); Partial Thromboplastin Time 25.6 SECS (23.8-32.1)
[2022-01-23] MEDS ORDERED: SODIUM CHLORIDE 0.9% 500 ML IV STA (21:18)
[2022-01-23] MEDS ORDERED: PIPERACILLIN/TAZOBACTAM 3,375 MG in SODIUM CHLORIDE 0.9% 100 ML IV STA (21:18)
[2022-01-23 21:20] LABS: Alanine Aminotransferase < 9 U/L (16-61); Albumin 2.8 G/DL (3.4-5.0); Alkaline Phosphatase 128 U/L (45-117); Aspartate Amino Transferase 15 U/L (0-37); Blood Urea Nitrogen 116 MG/DL (7-18); Calcium 9.8 MG/DL (8.5-10.1); Carbon Dioxide 30 MMOL/L (21-32); Chloride 93 MMOL/L (98-107); Glucose 120 MG/DL (74-106); Osmolality,Calculated 307.1 MOS/KG (273-304); Sodium 135 MMOL/L (136-145); Total Protein 8.3 G/DL (6.4-8.2)
[2022-01-23 21:27] LABS: Potassium 6.4 MMOL/L (3.5-5.1)
[2022-01-23] MEDS ORDERED: DEXTROSE 50% 25 GM/50 ML VIAL IV STA (21:35)
[2022-01-23] MEDS ORDERED: INSULIN REGULAR 100 UNIT/ML IV STA (21:35)
[2022-01-23] MEDS ORDERED: LABETALOL 20 MG/4 ML SYRINGE IV STA (21:51)
[2022-01-23] MEDS ORDERED: DEXTROSE 50% 25 GM/50 ML SYRINGE IV ONE (21:52)
[2022-01-23] MEDS ORDERED: GLUCAGON 1 MG VIAL IM PRN (22:32)
[2022-01-23] MEDS ORDERED: DEXTROSE 10% 250 ML BAG IV PRN (22:32)
[2022-01-23] MEDS ORDERED: LABETALOL 20 MG/4 ML SYRINGE IV PRN (23:28)
[2022-01-23] MEDS ORDERED: VANCOMYCIN INJ 500 MG in SODIUM CHLORIDE 0.9% 100 ML IV PRN (23:53)
[2022-01-24] MEDS: INSULIN LISPRO 100 UNIT/ML SUBCUT SCH ×4 (01:11→18:08)
[2022-01-24] MEDS: HEPARIN 5,000 UNIT/1 ML VIAL SUBCUT SCH ×3 (02:00→21:34)
[2022-01-24] MEDS ORDERED: VANCOMYCIN INJ 1,000 MG in SODIUM CHLORIDE 0.9% 250 ML IV ONE (02:30)
[2022-01-24 03:02] LABS: Basophils % 0.1 % (0.0-0.8); Eosinophils % 0.2 % (0.00-10.9); Hematocrit 32.4 VOL% (42.0-52.0); Hemoglobin 9.6 GM/DL (14.0-18.0); Immature Granulocytes % 0.7 %; Immature Granulocytes Absolute 0.06 #; Lymphocytes % 10.8 % (21.2-54.2); Mean Corpuscular HGB Conc 29.6 GM/DL (32-36); Mean Corpuscular Volume 85.9 FL (87-102); Mean Platelet Volume 10.3 FL (9.6-12.0); Monocytes # 0.5 10*3/uL (0.11-0.8); Neutrophils % 82.2 % (38.7-73.9); Platelet Count 176 T/CUMM (130-400); Red Blood Count 3.77 MC/CUMM (3.8-5.5); Red Cell Distribution Width 17.6 % (9.3-17.3); White Blood Count 8.8 T/CUMM (4-12)
[2022-01-24 03:22] LABS: Bacteria,Urine Occasional /HPF (Few); RBC,Urine 152 /HPF (0-4)
[2022-01-24 03:24] LABS: Bilirubin,Urine Negative (Negative); Blood, Urine Large mg/dL (Negative); Glucose,Urine (UA) Negative (Negative); Ketones,Urine Negative (Negative); Nitrite,Urine Negative (Negative); Protein,Urine >=300 mg/dL (Negative); Urine Appearance Clear (Clear); Urine Color Yellow (Yellow); Urine Specific Gravity 1.025 (1.001-1.035); Urine Urobilinogen 0.2 eU/dL (<2.0)
[2022-01-24 03:38] LABS: Barbiturates Screen,Urine Negative (Negative); Benzodiazepines Screen,Urine Negative (Negative); Cannabinoid Screen,Urine Negative (Negative); Opiate Screen,Urine Negative (Negative); Phencyclidine Screen,Urine Negative (Negative)
[2022-01-24 03:49] LABS: Calcium 9.5 MG/DL (8.5-10.1); Osmolality,Calculated 311.7 MOS/KG (273-304); Potassium 5.9 MMOL/L (3.5-5.1); Thyroid Stimulating Hormone 3.78 uIU/ml (0.358-3.74)
[2022-01-24] MEDS ORDERED: hydrALAZINE 20 MG/1 ML VIAL IV PRN (08:30)
[2022-01-24] MEDS: PANTOPRAZOLE 40 MG VIAL IV SCH (09:09)
[2022-01-24] MEDS: PIPERACILLIN/TAZOBACTAM 3,375 MG in SODIUM CHLORIDE 0.9% 100 ML IV SCH ×2 (11:21→22:46)
[2022-01-24] MEDS ORDERED: HEPARIN 10,000 UNIT/10 ML VIAL IV SCH (14:30)
[2022-01-24] MEDS ORDERED: VANCOMYCIN INJ 500 MG in SODIUM CHLORIDE 0.9% 100 ML IV ONE (17:00)
[2022-01-24] MEDS: METOPROLOL TARTRATE 5 MG/5 ML VIAL IV SCH ×2 (17:10→19:27)
[2022-01-25] MEDS: METOPROLOL TARTRATE 5 MG/5 ML VIAL IV SCH ×4 (01:15→18:15)
[2022-01-25] MEDS: INSULIN LISPRO 100 UNIT/ML SUBCUT SCH ×4 (01:20→18:11)
[2022-01-25 06:09] LABS: Basophils # 0.1 10*3/uL (0.0-0.2); Basophils % 0.6 % (0.0-0.8); Eosinophils # 0.1 10*3/uL (0.0-0.87); Eosinophils % 1.1 % (0.00-10.9); Hematocrit 28.7 VOL% (42.0-52.0); Hemoglobin 8.3 GM/DL (14.0-18.0); Immature Granulocytes % 0.4 %; Immature Granulocytes Absolute 0.04 #; Lymphocytes # 1.3 10*3/uL (1.4-4.0); Lymphocytes % 12.6 % (21.2-54.2); Mean Corpuscular HGB Conc 28.9 GM/DL (32-36); Mean Platelet Volume 11.4 FL (9.6-12.0); Monocytes # 0.9 10*3/uL (0.11-0.8); Neutrophils % 76.3 % (38.7-73.9); Platelet Count 122 T/CUMM (130-400); Red Blood Count 3.26 MC/CUMM (3.8-5.5); Red Cell Distribution Width 17.5 % (9.3-17.3)
[2022-01-25 06:32] LABS: Calcium 9.1 MG/DL (8.5-10.1); Potassium 5.8 MMOL/L (3.5-5.1); Risk Ratio 4.41; VLDL Cholesterol 41.4 MG/DL
[2022-01-25] MEDS: PANTOPRAZOLE 40 MG VIAL IV SCH (10:40)
[2022-01-25] MEDS: HEPARIN 5,000 UNIT/1 ML VIAL SUBCUT SCH (10:40)
[2022-01-25] MEDS: ASPIRIN EC 81 MG TABLET PO SCH (10:43)
[2022-01-25] MEDS: TACROLIMUS 0.5 MG CAPSULE PO SCH ×3 (10:43→21:40)
[2022-01-25] MEDS: CYPROHEPTADINE 4 MG TABLET PO SCH ×4 (10:43→21:40)
[2022-01-25] MEDS: PANTOPRAZOLE 40 MG TABLET PO SCH (10:44)
[2022-01-25] MEDS: CHOLESTYRAMINE 4 GM PACK PO SCH ×3 (10:45→21:41)
[2022-01-25] MEDS ORDERED: ENTECAVIR 0.5 MG PO SCH (10:45)
[2022-01-25] MEDS: METOCLOPRAMIDE 5 MG TABLET PO SCH (10:46)
[2022-01-25] MEDS: PIPERACILLIN/TAZOBACTAM 3,375 MG in SODIUM CHLORIDE 0.9% 100 ML IV SCH (12:05)
[2022-01-25] MEDS: NYSTATIN 500,000 UNIT/5 ML UDCUP SWISH/SWAL SCH ×3 (14:09→21:27)
[2022-01-25] MEDS ORDERED: INSULIN ASPART PROTAMINE/ASPART 70/30 100 UNIT/ML SUBCUT SCH ×2 (16:30→21:00)
[2022-01-25] MEDS: FERROUS SULFATE 325 MG TABLET PO SCH ×2 (21:28→21:38)
[2022-01-26] MEDS: INSULIN LISPRO 100 UNIT/ML SUBCUT SCH ×4 (00:28→18:51)
[2022-01-26] MEDS: METOPROLOL TARTRATE 5 MG/5 ML VIAL IV SCH ×4 (00:31→18:50)
[2022-01-26 13:31] LABS: Basophils # 0.1 10*3/uL (0.0-0.2); Basophils % 0.8 % (0.0-0.8); Eosinophils # 0.1 10*3/uL (0.0-0.87); Eosinophils % 2.1 % (0.00-10.9); Hematocrit 25.8 VOL% (42.0-52.0); Hemoglobin 7.5 GM/DL (14.0-18.0); Immature Granulocytes % 0.5 %; Immature Granulocytes Absolute 0.03 #; Lymphocytes % 15.3 % (21.2-54.2); Mean Corpuscular HGB Conc 29.1 GM/DL (32-36); Mean Corpuscular Volume 88.7 FL (87-102); Mean Platelet Volume 10.6 FL (9.6-12.0); Monocytes # 0.2 10*3/uL (0.11-0.8); Monocytes % 3.9 % (1.7-12.7); Neutrophils % 77.4 % (38.7-73.9); Platelet Count 150 T/CUMM (130-400); Red Blood Count 2.91 MC/CUMM (3.8-5.5); Red Cell Distribution Width 16.6 % (9.3-17.3); White Blood Count 6.2 T/CUMM (4-12)
[2022-01-26 13:59] LABS: Calcium 8.5 MG/DL (8.5-10.1); Osmolality,Calculated 289.7 MOS/KG (273-304); Potassium 3.9 MMOL/L (3.5-5.1)
[2022-01-26] MEDS: FERROUS SULFATE 325 MG TABLET PO SCH ×2 (16:15→21:44)
[2022-01-26] MEDS: PANTOPRAZOLE 40 MG TABLET PO SCH (16:15)
[2022-01-26] MEDS: TACROLIMUS 0.5 MG CAPSULE PO SCH ×2 (16:15→21:44)
[2022-01-26] MEDS: ATORVASTATIN 20 MG TABLET PO SCH (16:15)
[2022-01-26] MEDS: NYSTATIN 500,000 UNIT/5 ML UDCUP SWISH/SWAL SCH ×4 (16:16→21:45)
[2022-01-26] MEDS: CYPROHEPTADINE 4 MG TABLET PO SCH ×4 (16:16→21:44)
[2022-01-26] MEDS: amLODIPine 5 MG TABLET PO SCH (16:16)
[2022-01-26] MEDS: ASPIRIN EC 81 MG TABLET PO SCH (16:16)
[2022-01-26] MEDS: METOCLOPRAMIDE 5 MG TABLET PO SCH (16:27)
[2022-01-26] MEDS: CHOLESTYRAMINE 4 GM PACK PO SCH ×2 (16:36→21:50)
[2022-01-26] MEDS: PANTOPRAZOLE 40 MG VIAL IV SCH (16:36)
[2022-01-27] MEDS: INSULIN LISPRO 100 UNIT/ML SUBCUT SCH ×3 (00:29→12:28)
[2022-01-27] MEDS: METOPROLOL TARTRATE 5 MG/5 ML VIAL IV SCH ×3 (00:30→12:29)
[2022-01-27 06:00] LABS: Calcium 8.4 MG/DL (8.5-10.1)
[2022-01-27] MEDS: ATORVASTATIN 20 MG TABLET PO SCH (10:52)
[2022-01-27] MEDS: TACROLIMUS 0.5 MG CAPSULE PO SCH (10:52)
[2022-01-27] MEDS: NYSTATIN 500,000 UNIT/5 ML UDCUP SWISH/SWAL SCH (10:52)
[2022-01-27] MEDS: CHOLESTYRAMINE 4 GM PACK PO SCH (10:52)
[2022-01-27] MEDS: PANTOPRAZOLE 40 MG TABLET PO SCH (10:52)
[2022-01-27] MEDS: amLODIPine 5 MG TABLET PO SCH (10:52)
[2022-01-27] MEDS: METOCLOPRAMIDE 5 MG TABLET PO SCH (10:52)
[2022-01-27] MEDS: FERROUS SULFATE 325 MG TABLET PO SCH (10:52)
[2022-01-27] MEDS: ASPIRIN EC 81 MG TABLET PO SCH (10:52)
[2022-01-27] MEDS: CYPROHEPTADINE 4 MG TABLET PO SCH ×2 (10:54→12:28)
[2022-01-27 14:06] VITALS: BP 121/68
== END 2022-01-27 14:13 | DRG 291 ==
LOC: EDBD → EDUNIT# → N.ED 19:52 → N.EDINP 23:38 → N.TELEN 01-24 12:40
PROVIDERS: ADMIT Internal Medicine; ATTEND Internal Medicine